=== PATIENT | male | born 1990 | race Caucasian/White ===

== ENCOUNTER 2018-03-16 17:05 | Emergency (ER) | payer SELFPAY ==
[2018-03-16 17:07] VITALS: BP 126/70; PULSE 70; RESP 18; TEMP 36.6; O2SAT 98; BMI 19.1
[2018-03-16] MEDS: Ziprasidone IM 20 MG/ML VIAL IM (17:56)
[2018-03-16 18:32] LABS: Absolute Lymphocyte Count 2.59 X10^3/ul (0.83-4.51); Absolute Neutrophil Count 6.3 X10^3/uL (2.0-7.7); Basophil# 0.05 X10^3/uL; Basophil% 0.5 % (0-1); Eosinophil# 0.16 X10^3/uL; Eosinophils% 1.6 % (0-5); Hematocrit 41.8 % (40-54); Hemoglobin 13.9 g/dl (13.0-16.5); Lymphocyte # 2.59 X10^3/ul (4.0); Mean Corp Hgb Conc 33.3 g/gl (32-36); Mean Corpuscular Volume 87.1 fL (80-94); Mean Platelet Vol. 8.7 fl (6.2-12.0); Monocyte# 0.83 X10^3/uL; Monocyte% 8.3 % (0-10); Neutrophil % 63.4 % (47-70); Platelet Count 297 K/mm3 (150-450); RBC Distribution Width SD 41.7 fl (35.1-43.9)
[2018-03-16 18:39] LABS: POSITIVE COUNT NO; POSITIVE DIFFERENTIAL NO; POSITIVE MORPHOLOGY NO
[2018-03-16 18:42] LABS: Anion Gap 5 (5-15); BUN 6 mg/dL (7-18); BUN/Creat Ratio 9.1 RATIO (10-20); Calcium,Total 8.7 mg/dL (8.5-10.1); Chloride 106 mmol/L (98-107); Creatinine, Serum 0.66 mg/dL (0.70-1.30); EST Glomerular Filtration Rate 155 mL/min (>60); Est Glom Filt Rate - Afr Amer 188 mL/min (>60); Estimated Creatinine Clearance 132.42 ml/min; Glucose 79 mg/dL (74-106); Potassium 3.9 mmol/L (3.5-5.1); Sodium Level 138 mmol/L (136-145)
[2018-03-16 18:51] LABS: Alcohol, Blood (Medical)-Serum < 3.0 mg/dL
--- NOTE | 2018-03-16 19:20 | ED.VISSUMM ---
- ER Visit Summary Date of Service: 03/16/18 Chief Complaint: Suicidal and homicidal ideation History of Present Illness: The patient is a 28 M presenting with suicidal and homicidal ideation. Patient was seen at the counseling center today. He was pink slipped and sent to the ED for evaluation. He has been homicidal towards his mother and older brother. He has been having persecutory delusions. Grandmother states he got out of longterm a few months ago and has not been taking his depression medication. On arrival patient refuses to answer any questions. Physical Examination: Vitals are stable. Patient is afebrile. Alert no acute distress. HEENT exam is unremarkable. Neck is supple. Lungs are clear and equal bilaterally. Heart is regular rate and rhythm. Extremities are unremarkable. Skin is warm and dry. No focal neurologic deficit. Agitation Remainder of exam is unremarkable. Emergency Department Course and Treatment: Patient was given Geodon IM. CBC, chemistries unremarkable. Alcohol is negative. Tox positive for amphetamines, THC. Will discuss with the counseling center for evaluation. Disposition: Per counseling center Impression: Suicidal and homicidal ideation This note was generated with [employer] dictation software. It may contain incorrect words, spelling, and punctuation that were not noted in review of the chart prior to signing ED Disposition - Plan for ED Patient: Chief Complaint: Suicidal Referrals: NOT,DEFINED [NON-STAFF] -
[2018-03-16 20:42] LABS: Amphetamine Urine VISTA POSITIVE (<1000 ng/mL); Barbiturate Urine VISTA NEGATIVE (< 200 ng/mL); Benzodiazepine Urine VISTA NEGATIVE (< 200 ng/mL); Cocaine Urine VISTA NEGATIVE (< 300 ng/mL); Ecstacy Urine VISTA NEGATIVE (< 500 ng/mL); Methadone Urine VISTA NEGATIVE (< 300 ng/mL); PCP Urine VISTA NEGATIVE (< 25 ng/mL); THC Urine VISTA POSITIVE (< 50 ng/mL); Vista UDS pH Range 6
[2018-03-16 21:00] VITALS: RESP 14
[2018-03-16 22:01] VITALS: RESP 14
--- NOTE | 2018-03-16 23:47 | EKG12_ITS ---
Test Reason : MHC Blood Pressure : / mmHG Vent. Rate : 067 BPM Atrial Rate : 067 BPM P-R Int : 136 ms QRS Dur : 084 ms QT Int : 392 ms P-R-T Axes : 060 085 066 degrees QTc Int : 414 ms Normal sinus rhythm Normal ECG Confirmed by ANDREW BARRAZA ([id number]), dictionary editor BINA GUZMÁN ([id number]) on 03/21/2018 8:44:06 AM Referred By: Confirmed By:ANDREW BARRAZA
--- NOTE | 2018-03-16 23:47 | ED.RN ---
dede called at this time and requested liver profile and ekg be obtained and faxed to them at this time
[2018-03-17 00:12] LABS: AST(SGOT) 23 U/L (15-37); Alanine Aminotransfer ALT/SGPT 26 U/L (16-61); Alkaline Phosphatase 94 U/L (45-117); Globulin 3.5 g/dL (2.2-4.2); Protein, Total 7.5 g/dL (6.4-8.2)
[2018-03-17 01:00] VITALS: RESP 14
[2018-03-17 02:28] VITALS: RESP 20
[2018-03-17 04:21] VITALS: BP 102/67; PULSE 57; RESP 18; O2SAT 97
[2018-03-17 05:01] VITALS: RESP 16
[2018-03-17 06:05] VITALS: RESP 16
--- NOTE | 2018-03-17 07:18 | NURSING ---
CALLED [facility] FOR TRANSPORT AT 0900.
[2018-03-17 08:48] VITALS: BP 104/78; PULSE 60; RESP 16; TEMP 36.4; O2SAT 98
== END 2018-03-17 08:54 ==
PROVIDERS: Emergency Provider Emergency Medicine
DX: R45.851 Suicidal ideations (principal); R45.850 Homicidal ideations; Z72.0 Tobacco use
CPT/HCPCS: 36415; 80048; 80076; 80307; 80320; 85025; 93005; 96372; 99284; G0480; J3486

== ENCOUNTER 2020-06-29 13:52 | Emergency (ER) | payer SELFPAY ==
[2020-06-29 13:55] VITALS: PULSE 63; RESP 16; TEMP 36.6; O2SAT 97; BMI 15.7
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
[2020-06-29 14:26] LABS: Absolute Lymphocyte Count 1.68 X10^3/uL (0.83-4.51); Absolute Neutrophil Count 11.7 X10^3/uL (2.0-7.7); Basophil# 0.08 X10^3/uL; Basophil% 0.5 % (0-1); Eosinophils% 1.3 % (0-5); Hematocrit 42.9 % (40-54); Hemoglobin 14.4 g/dL (13.0-16.5); Lymphocyte # 1.68 X10^3/ul (4.0); Lymphocyte % 11.2 % (19-41); Mean Corp Hgb Conc 33.6 g/dL (32-36); Mean Corpuscular Hgb 28.9 pg (27.0-32.0); Mean Corpuscular Volume 86.1 fL (80-94); Mean Platelet Vol. 8.8 fl (6.2-12.0); Monocyte# 1.31 X10^3/uL; Monocyte% 8.7 % (0-10); NRBC Flagged by Analyzer 0 % (0-5); Neutrophil # 11.65 X10^3/uL (2.7-7.7); Neutrophil % 77.9 % (47-70); Platelet Count 312 K/mm3 (150-450); RBC Distribution Width CV 12.3 % (11.6-14.6); RBC Distribution Width SD 38.7 fl (35.1-43.9); Red Blood Count 4.98 M/mm3 (4.6-6.2)
[2020-06-29 14:38] LABS: Anion Gap 8 (5-15); BUN 16 mg/dL (7-18); BUN/Creat Ratio 14.4 RATIO (10-20); Calcium,Total 9.2 mg/dL (8.5-10.1); Chloride 103 mmol/L (98-107); Creatinine, Serum 1.11 mg/dL (0.70-1.30); EST Glomerular Filtration Rate 84 mL/min (>60); Est Glom Filt Rate - Afr Amer 101 mL/min (>60); Glucose 90 mg/dL (74-106); Potassium 3.2 mmol/L (3.5-5.1); Sodium Level 140 mmol/L (136-145)
[2020-06-29 14:47] LABS: Alcohol, Blood (Medical)-Serum < 3.0 mg/dL
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
--- NOTE | 2020-06-29 15:15 | ED.RN ---
PINK SLIP COMPLETED BY DR. RAVI FOR TRANSPORT TO [facility].
--- NOTE | 2020-06-29 15:22 | ED.RN ---
[facility] TRANSPORT TEAM HERE TO TRANSPORT PATIENT, CARE AND REPORT TO THEM, PATIENT STATUS UNCHANGED AT THIS TIME.
--- NOTE | 2020-06-29 15:23 | ED.RN ---
opsite dressing applied to pt's right side of neck, [facility] present in room for transport to [facility].
[2020-06-29 15:34] VITALS: BP 113/62; PULSE 61; RESP 14; O2SAT 99
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
== END 2020-06-29 15:50 | disposition short-term general hospital (02) ==
PROVIDERS: Emergency Provider Emergency Medicine
DX: S11.81XA Laceration without foreign body of other specified part of neck, initial encounter (principal); X78.1XXA Intentional self-harm by knife, initial encounter; Y93.89 Activity, other specified; Y92.099 Unspecified place in other non-institutional residence as the place of occurrence of the external cause; Y99.9 Unspecified external cause status; F31.9 Bipolar disorder, unspecified; F20.9 Schizophrenia, unspecified; Z91.5 Personal history of self-harm; Z72.0 Tobacco use
CPT/HCPCS: 70498; 80048; 82077; 85025; 87426; 99285; Q9967; A4216

== ENCOUNTER 2024-04-17 17:29 | Emergency (ER) | payer MEDICAID, SELFPAY ==
[2024-04-17 17:30] VITALS: BP 113/57; PULSE 71; RESP 16; TEMP 36.8; O2SAT 99; BMI 17.1
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
[2024-04-17 18:28] LABS: Absolute Lymphocyte Count 2.81 X10^3/uL (0.83-4.51); Absolute Neutrophil Count 9.8 X10^3/uL (2.0-7.7); Basophil# 0.13 X10^3/uL; Basophil% 0.9 % (0-1); Eosinophil# 0.49 X10^3/uL; Eosinophils% 3.3 % (0-5); Hematocrit 40.8 % (40-54); Hemoglobin 13.4 g/dL (13.0-16.5); Lymphocyte # 2.81 X10^3/ul (0.83-4.51); Mean Corp Hgb Conc 32.8 g/dL (32-36); Mean Corpuscular Volume 85.4 fL (80-94); Mean Platelet Vol. 9.2 fl (6.2-12.0); Monocyte# 1.55 X10^3/uL; Monocyte% 10.5 % (0-10); NRBC Flagged by Analyzer 0 % (0-5); Neutrophil # 9.75 X10^3/uL (2.7-7.7); POSITIVE DIFFERENTIAL YES; Platelet Count 377 K/mm3 (150-450); Red Blood Count 4.78 M/mm3 (4.6-6.2); White Blood Count 14.8 K/mm3 (4.4-11.0)
[2024-04-17 18:33] LABS: Differential Indicated SCAN CRITERIA MET
[2024-04-17 18:46] LABS: Anion Gap 3 (5-15); BUN 27 mg/dL (7-18); Calcium,Total 9.1 mg/dL (8.5-10.1); Chloride 106 mmol/L (98-107); Creatinine, Serum 1.08 mg/dL (0.70-1.30); EST Glomerular Filtration Rate 84 mL/min (>60); Est Glom Filt Rate - Afr Amer 102 mL/min (>60); Estimated Creatinine Clearance 66.94 ml/min; Glucose 72 mg/dL (74-106); Potassium 4.5 mmol/L (3.5-5.1); Sodium Level 138 mmol/L (136-145)
[2024-04-17 18:55] LABS: Amphetamine Urine VISTA POSITIVE (<1000 ng/mL); Barbiturate Urine VISTA NEGATIVE (< 200 ng/mL); Benzodiazepine Urine VISTA NEGATIVE (< 200 ng/mL); Cocaine Urine VISTA NEGATIVE (< 300 ng/mL); Ecstacy Urine VISTA POSITIVE (< 500 ng/mL); Methadone Urine VISTA NEGATIVE (< 300 ng/mL); PCP Urine VISTA NEGATIVE (< 25 ng/mL); THC Urine VISTA POSITIVE (< 50 ng/mL); Vista UDS pH Range 4
[2024-04-17 20:34] LABS: Atypical Lymphocyte RARE %
--- NOTE | 2024-04-18 01:49 | ED.RN ---
PT ACCEPTED AT [facility] [phone] BALANCE UNIT
[2024-04-18 02:25] VITALS: BP 98/52; PULSE 68; RESP 18; TEMP 36.6; O2SAT 99
[2024-04-18] MEDS: LORazepam 2 MG/ML Syringe IM (08:20)
[2024-04-18] MEDS: DiphenhydrAMINE 50 MG/ML Syringe IM (08:20)
--- NOTE | 2024-04-18 08:28 | ED.RN ---
pt asked this rn if he could use the phone. this rn went to grab phone for patient and pts behavior escalated. pt attempted to walk right by nursing staff to [facility]. HINA Frias and director information security Khang attempt to get patient back into room. once patient back into room, pts behavior escalated even more and pt began to yell and run towards HRRigoberto Frias. HINA Frias takes pt down onto the bed with the assist of nursing staff and security Khang. pt given x1 dose of Ativan and Benadryl per MD order. pt agitation increases and begins yelling at staff and stating that we have no legal right to hold patient here. nursing staff explains to patient the medical hold policy and how legally he is to be held here and sent to a facility per the decision of the physician and a crisis counselor. pt still agitated and pacing the room. pt again attempts to leave the room and head down the ware. pt escorted back to the room by security Grover and HINA Frias. pt attempts to shove around security Grover. pt then taken to the ground by and pt asked to return to bed. pt complies. staff closes the door and pt closes the curtain and begins to punch the wall in the room. this RN states to security that he is punching things and security goes into the room to ask pt to stop. this rn asks pt to return to bed and this rn to apply nicotine patch and order his breakfast. pt complies and HRO gives patient a blanket and pt curls up on the bed.
[2024-04-18 10:00] VITALS: BP 109/51; PULSE 61; RESP 16; O2SAT 98
[2024-04-18] MEDS: Citalopram 20 MG Tablet PO (11:02)
[2024-04-18 11:03] VITALS: BP 109/71; PULSE 61; RESP 16; TEMP 36.5; O2SAT 98
[2024-04-18 14:28] LABS: Pathologist Review Reviewed
== END 2024-04-18 11:05 ==
PROVIDERS: Emergency Provider Emergency Medicine; Visit Provider Emergency Medicine
DX: R45.6 Violent behavior (principal); F31.10 Bipolar disorder, current episode manic without psychotic features, unspecified; F17.210 Nicotine dependence, cigarettes, uncomplicated; Z79.899 Other long term (current) drug therapy
CPT/HCPCS: 80048; 80307; 82077; 85025; 96372; 99285

== ENCOUNTER 2024-07-25 17:14 | Emergency (ER) | payer MEDICAID, SELFPAY ==
[2024-07-25 17:15] VITALS: BP 150/90; PULSE 94; RESP 15; TEMP 36.1; O2SAT 100; BMI 20.9
--- NOTE | 2024-07-25 20:26 | ED.RN ---
The patient was pacing back and forth in the room and yelling at the elderly female.
--- NOTE | 2024-07-25 20:26 | ED.RN ---
pt somewhat anxious and stated he did not wnt to wait anymore and walked out.
== END 2024-07-25 20:05 | disposition left against medical advice (07) ==
LOC: ED 20:28
PROVIDERS: Emergency Provider Emergency Medicine; Visit Provider Emergency Medicine
DX: Z53.21 Procedure and treatment not carried out due to patient leaving prior to being seen by health care provider (principal)
CPT/HCPCS: 99282